=== PATIENT | male | born 1980 | race Caucasian/White ===

== ENCOUNTER 2023-03-05 01:04 | Emergency (ER) | payer SELFPAY ==
[~2023-03-05] VITALS: Ht 172.7 cm; Wt 70.0 kg
[2023-03-05 01:16] VITALS: BP 130/70; PULSE 80; RESP 16; TEMP 98.5; O2SAT 98
== END 2023-03-05 06:47 ==
LOC: ER 01:04
DX: S01.81XA Laceration without foreign body of other part of head, initial encounter (principal); X58.XXXA Exposure to other specified factors, initial encounter; Y93.89 Activity, other specified; Y92.89 Other specified places as the place of occurrence of the external cause; Y99.8 Other external cause status
CPT/HCPCS: 12013; 99284